=== PATIENT | male | born 1975 | race African-American/Black ===

== ENCOUNTER → 2020-08-04 | Outpatient (CLI) | payer OTHER ==
[2013-12-15 14:30] VITALS: BP 132/79
--- NOTE | 2020-08-04 12:44 | KCIC ---
C-spine 5 views INDICATION: Left arm weakness and cervical radiculopathy. COMPARISON: None currently available TECHNIQUE: AP, open-mouth odontoid, lateral, and bilateral oblique views of the cervical spine were o btained. FINDINGS: Cervical spine is straightened. There is no listhesis. No fracture or aggressive bony lesions. The hailey krys are well-mineralized. There is minimal disc space narrowing and osteophytic spurring at C5-C6. Mi nimal osteophytic spurring at C6-C7 anteriorly is also noted. Bilateral oblique views show no signifi cant foraminal stenosis. The soft tissues are unremarkable. IMPRESSION: Cervical spine is straightened which could be a reflection of splinting the setting of minimal disc d egenerative changes best appreciated at C5-C6. No significant central canal or foraminal stenosis is identified and no fracture or aggressive bone lesions. Electronically signed by: Terrell Escobar MD (08/04/2020 12:42 PM) [id number]
== END ==
LOC: KCIC 08:38
PROVIDERS: ATTEND Family Medicine
DX: M47.812 Spondylosis without myelopathy or radiculopathy, cervical region (principal); R53.1 Weakness
CPT/HCPCS: 72050